=== PATIENT | male | born 1990 | race African-American/Black ===

== ENCOUNTER 2017-10-13 17:12 | Inpatient (IN) | payer MEDICAID ==
[~2017-10-13] VITALS: Ht 172.7 cm; Wt 88.6 kg
[~2017-10-13 17:12] MED LIST: DEXAMETHASONE SOD PHOS 4 MG/ML VIAL IV ONE; KETOROLAC TROMETHAMINE 30 MG/ML (IVP) VIAL IV PUSH ONE; LACTATED RINGER'S 1000 ML INJ 1,000 ML IV ONE; LIDOCAINE HCL 1% PF 5 ML SYRINGE OTHER ONE; ONDANSETRON HCL 4 MG/2 ML VIAL IV PUSH ONE; PROPOFOL 200 MG/20 ML AMP IV ONE
[2017-10-13 17:13] VITALS: BP 142/92; PULSE 73; RESP 12; TEMP 98; O2SAT 99
[2017-10-13] MEDS ORDERED: PIPERACIL-TAZO 3.375 GM PREMIX 50 ML IV ONE (17:30)
[2017-10-13] MEDS ORDERED: VANCOMYCIN INJ 1,000 MG in SODIUM CHLOR 0.9% 250 ML INJ 250 ML IV ONE (17:30)
[2017-10-13] MEDS ORDERED: TETANUS/DIPHTHERIA TOXOID ADULT 0.5 ML VIAL IM ONE (17:30)
--- NOTE | 2017-10-13 17:33 | PD ---
HPI Chief Complaint: Injury Time Seen by Provider: 17:27 Travel History International Travel<30 days: No Contact w/Intl Traveler<30days: No Traveled to known affect area: No History of Present Illness HPI [id number] male presents for evaluation of right index finger pain. He reports that 1 week ago he had his finger in the trigger of a caulk gun when the trigger somehow collapsed, crushing his right index finger. Since then he has had increasing pain and swelling in that right index finger now the pain is spreading up to the dorsum of the right wrist. Pain is throbbing, constant, worse with any sort of movement. He Reports that yesterday there was some oozing of serosanguineous fluid on the dorsum of the right index finger as well. It does not recall sustaining any wounds on the skin when his finger was crushed. His last tetanus vaccination is unknown. He has no other complaints. [facility] Social History Alcohol Use: Yes Tobacco Use: No Allergies-Medications (Allergen,Severity, Reaction): Coded Allergies: No Known Allergies (Unverified , 10/13/17) Review of Systems Except as stated in HPI: all other systems reviewed are Neg Physical Exam Narrative GENERAL: Well-developed well-nourished male who appears uncomfortable. SKIN: Warm and dry. Small area of skin excoriation on the dorsum of the right index finger with some dried blood. HEAD: Atraumatic. Normocephalic. EYES: Pupils equal and round. No scleral icterus. No injection or drainage. ENT: No nasal bleeding or discharge. Mucous membranes pink and moist. NECK: Trachea midline. No JVD. CARDIOVASCULAR: Regular rate and rhythm. No murmur appreciated. RESPIRATORY: No accessory muscle use. Clear to auscultation. Breath sounds equal bilaterally. MUSCULOSKELETAL: The right index finger is diffusely swollen. The patient is holding and passive flexion. He has significant pain with extension. He has no tenderness to palpation along the flexor tendon sheath of the right index finger or hand. NEUROLOGICAL: Awake and alert. No obvious cranial nerve deficits. Motor grossly within normal limits. Normal speech. Data Data Last Documented VS Vital Signs Date Time Temp Pulse Resp B/P (MAP) Pulse Ox O2 Delivery O2 Flow Rate FiO2 10/13/17 17:13 98.0 73 12 142/92 (109) 99 Orders Orders Finger (Mtz4qia) (2/3/18 ) Iv Access Insert/Monitor (10/13/17 17:27) Complete Blood Count With Diff (10/13/17 17:27) Basic Metabolic Panel (Bmp) (10/13/17 17:27) Act Partial Throm Time (Ptt) (10/13/17 17:27) Prothrombin Time / Inr (Pt) (10/13/17 17:27) Vancomycin Inj (Vancomycin Inj) (10/13/17 17:30) Piperacil-Tazo 3.375 Gm Premix (Zosyn 3. (10/13/17 17:30) Tetanus/Diphtheria Tox Adult (Tetanus/Di (10/13/17 17:30) Wound Culture And Gram Stain (10/13/17 17:37) Diet Npo (10/13/17 Dinner) Consult Hand Surgery (10/13/17 ) Mri Hand W/O Contrast (10/13/17 ) (Hub Use Only)Inp Phy Cons/Ref (10/13/17 ) Consent (10/13/17 18:04) Morphine Inj (Morphine Inj) (10/13/17 18:15) Admit Order (Ed Use Only) (10/13/17 18:17) Labs Laboratory Tests Test 10/13/17 17:40 White Blood Count 10.5 TH/MM3 Red Blood Count 4.26 MIL/MM3 Hemoglobin 14.0 GM/DL Hematocrit 40.5 % Mean Corpuscular Volume 95.2 FL Mean Corpuscular Hemoglobin 33.0 PG Mean Corpuscular Hemoglobin Concent 34.6 % Red Cell Distribution Width 13.2 % Platelet Count 258 TH/MM3 Mean Platelet Volume 8.2 FL Neutrophils (%) (Auto) 69.0 % Lymphocytes (%) (Auto) 23.0 % Monocytes (%) (Auto) 6.7 % Eosinophils (%) (Auto) 0.8 % Basophils (%) (Auto) 0.5 % Neutrophils # (Auto) 7.2 TH/MM3 Lymphocytes # (Auto) 2.4 TH/MM3 Monocytes # (Auto) 0.7 TH/MM3 Eosinophils # (Auto) 0.1 TH/MM3 Basophils # (Auto) 0.1 TH/MM3 CBC Comment DIFF FINAL Differential Comment Prothrombin Time 10.0 SEC Prothromb Time International Ratio 1.0 RATIO Activated Partial Thromboplast Time 27.1 SEC Blood Urea Nitrogen 16 MG/DL Creatinine 1.19 MG/DL Random Glucose 98 MG/DL Calcium Level 9.3 MG/DL Sodium Level 139 MEQ/L Potassium Level 3.5 MEQ/L Chloride Level 104 MEQ/L Carbon Dioxide Level 28.2 MEQ/L Anion Gap 7 MEQ/L Estimat Glomerular Filtration Rate 73 ML/MIN MDM Medical Decision Making Medical Screen Exam Complete: Yes Emergency Medical Condition: Yes Medical Record Reviewed: Yes Differential Diagnosis Finger abscess, tenosynovitis osteomyelitis, cellulitis Narrative Course Plan is for lab work, finger x-ray, tetanus vaccination, broad-spectrum antibiotics. Hand surgery will be consulted. Some serous drainage was expressed and the wound culture was performed. Discussed with Dr. Cabrera who would like the patient admitted to medicine, she has ordered an MRI and is considering taking him to the OR. Diagnosis Primary Impression: Infection of right hand Additional Impression: Cellulitis of right hand Admitting Information Admitting Physician Requests: Admit Toro Chamberlain Oct 13, 2017 17:33
[2017-10-13 17:54] LABS: AUTOMATED NEUTROPHIL # 7.2 TH/MM3 (1.8-7.7); BASOPHIL # 0.1 TH/MM3 (0-0.2); BASOPHIL % 0.5 % (0.0-2.0); EOSINOPHIL # 0.1 TH/MM3 (0-0.4); EOSINOPHIL % 0.8 % (0.0-4.0); HEMATOCRIT 40.5 % (39.0-51.0); LYMPHOCYTE # 2.4 TH/MM3 (1.0-4.8); MEAN CELL VOLUME 95.2 FL (80.0-100.0); MEAN CORPUSCULAR HGB CONC 34.6 % (32.0-36.0); MEAN PLATELET VOLUME 8.2 FL (7.0-11.0); MONO % 6.7 % (0.0-8.0); MONOCYTE # 0.7 TH/MM3 (0-0.9); PLATELET COUNT 258 TH/MM3 (150-450); RED BLOOD COUNT 4.26 MIL/MM3 (4.50-5.90); RED CELL DISTRIBUTION WIDTH 13.2 % (11.6-17.2); WHITE BLOOD COUNT 10.5 TH/MM3 (4.0-11.0)
--- NOTE | 2017-10-13 18:12 | RADRPT ---
EXAM DATE/TIME: 10/13/2017 17:41 [facility] COMPARISON: No previous studies available for comparison. INDICATIONS : Patient complains of pain and swelling to the 2nd digit, right hand. Patient states the had a door cr ush their finger at work. Abrasion to 2nd DIPJ. MEDICAL HISTORY : None. SURGICAL HISTORY : None. ENCOUNTER: Initial ACUITY: 1 day PAIN SCORE: 6/10 LOCATION: Right 2nd DIPJ FINDINGS: No definite fractures, or dislocations are identified. No definite lytic or sclerotic lesion is seen . Soft tissue swelling is identified involving the second digit with very radiopaque densities may be radiopaque foreign bodies in the soft tissues or possibly on the skin. CONCLUSION: Soft tissue swelling and no definite fracture for technique, radiopaque densities as above. Gopi Avila MD on October 13, 2017 at 18:09 Board Certified Radiologist. This report was verified electronically.
[2017-10-13] MEDS ORDERED: MORPHINE SULFATE 2 MG/ML INJ IV PUSH ONE (18:15)
--- NOTE | 2017-10-13 18:17 | HHI.HP ---
[facility] Primary [facility] Physician No Primary Care Physician Admission Diagnosis right second finger infection Diagnoses: (1) Infection of right hand Diagnosis: Principal Chief Complaint: pain to the right hand. Travel History International Travel<30 Days: No Contact w/Intl Traveler <30 Da: No Traveled to Known Affected Are: No History of Present Illness patient is a 27 y/o male with no significant past medical history presents for evaluation of right index finger pain. He reports that 1 week ago he had his finger in the trigger of a caulk gun when the trigger somehow collapsed, crushing his right index finger. Since then he has had increasing pain and swelling in that right index finger now the pain is spreading up to the dorsum of the right wrist. he says that the pain is to the extent that he can not bend his finger. he denies any fever or chills. Review of Systems Constitutional: DENIES: Fever, Weight loss, Chills, Night Sweats Eyes: DENIES: Blurred vision, Diplopia, Vision loss, Double Vision Ears, nose, mouth, throat: DENIES: Tinnitus, Vertigo, Throat pain, Epistaxis Respiratory: DENIES: Apneas, Cough, Snoring, Wheezing, Hemoptysis, Sputum production, Shortness of breath Cardiovascular: DENIES: Chest pain, Palpitations, Syncope, Dyspnea on Exertion , PND, Lower Extremity Edema, Orthopnea, Claudication Gastrointestinal: DENIES: Abdominal pain, Black stools, Bloody stools, Constipation, Diarrhea, Nausea, Vomiting, Difficulty Swallowing, Anorexia Genitourinary: DENIES: Urinary frequency, Urgency, Hematuria, Dysuria Musculoskeletal: COMPLAINS OF: Joint pain (right hand.), DENIES: Muscle aches, Stiffness, Joint Swelling Integumentary: DENIES: Rash Neurologic: DENIES: Abnormal gait, Headache, Localized weakness, Paresthesias, Seizures, Speech Problems, Tremor, Poor Balance Psychiatric: DENIES: Anxiety, Confusion, Mood changes, Depression, Hallucinations, Agitation, Suicidal Ideation, Homicidal Ideation, Delusions Past Family Social History Past Medical History none. Past Surgical History hand surgery. Reported Medications none. Allergies: Coded Allergies: No Known Allergies (Unverified , 10/13/17) Active Ordered Medications Inpatient Medications Morphine Sulfate (Morphine Inj) 4 mg ONCE ONCE IV PUSH ; Start 10/13/17 at 18:15 ; Stop 10/13/17 at 18:16 Piperacillin Sod/ Tazobactam Sod 50 ml @ 100 mls/hr ONCE ONCE IV ; Start at 17:30; Stop 10/13/17 at 17:59; Status DC Tetanus/ Diphtheria Toxoids (Tetanus/ Diphtheria Tox Adult) 0.5 ml ONCE ONCE IM Last administered on 10/13/17at 18:01; Start 10/13/17 at 17:30; Stop 10/13/17 at 17:31; Status DC Vancomycin HCl 1000 mg/Sodium Chloride 250 ml @ 250 mls/hr ONCE ONCE IV Last administered on 10/13/17at 18:02; Start 10/13/17 at 17:30; Stop 10/13/17 at 18:29 Family History not relevant to this admission. Social History smokes and drinks occasionally. Physical Exam Vital Signs Vital Signs Date Time Temp Pulse Resp B/P (MAP) Pulse Ox O2 Delivery O2 Flow Rate FiO2 10/13/17 17:13 98.0 73 12 142/92 (109) 99 Physical Exam GENERAL: This is a well-nourished, well-developed patient, in no apparent distress. SKIN: No rashes, ecchymoses or lesions. Cool and dry. HEAD: Atraumatic. Normocephalic. No temporal or scalp tenderness. EYES: Pupils equal round and reactive. Extraocular motions intact. No scleral icterus. No injection or drainage. ENT: Nose without bleeding, purulent drainage or septal hematoma. Throat without erythema, tonsillar hypertrophy or exudate. Uvula midline. Airway patent. NECK: Trachea midline. No JVD or lymphadenopathy. Supple, nontender, no meningeal signs. CARDIOVASCULAR: Regular rate and rhythm without murmurs, gallops, or rubs. RESPIRATORY: Clear to auscultation. Breath sounds equal bilaterally. No wheezes , rales, or rhonchi. GASTROINTESTINAL: Abdomen soft, non-tender, nondistended. No hepato-splenomegaly , or palpable masses. No guarding. MUSCULOSKELETAL:significant swelling, redness and tenderness of the right second finger. NEUROLOGICAL: Awake and alert. Cranial nerves II through XII intact. Motor and sensory grossly within normal limits. Five out of 5 muscle strength in all muscle groups. Normal speech. Laboratory Laboratory Tests Test 10/13/17 17:40 White Blood Count 10.5 Red Blood Count 4.26 Hemoglobin 14.0 Hematocrit 40.5 Mean Corpuscular Volume 95.2 Mean Corpuscular Hemoglobin 33.0 Mean Corpuscular Hemoglobin Concent 34.6 Red Cell Distribution Width 13.2 Platelet Count 258 Mean Platelet Volume 8.2 Neutrophils (%) (Auto) 69.0 Lymphocytes (%) (Auto) 23.0 Monocytes (%) (Auto) 6.7 Eosinophils (%) (Auto) 0.8 Basophils (%) (Auto) 0.5 Neutrophils # (Auto) 7.2 Lymphocytes # (Auto) 2.4 Monocytes # (Auto) 0.7 Eosinophils # (Auto) 0.1 Basophils # (Auto) 0.1 CBC Comment DIFF FINAL Differential Comment Prothrombin Time 10.0 Prothromb Time International Ratio 1.0 Activated Partial Thromboplast Time 27.1 Date/Time Source Procedure Growth Status 10/13/17 17:40 Wound Finger Gram Stain Pending Received 10/13/17 17:40 Wound Finger Wound Culture Pending Received Result Diagram: 10/13/17 3901 Caprini VTE Risk Assessment Caprini VTE Risk Assessment: No/Low Risk (score <= 1) Caprini Risk Assessment Model Point Value = 1 Point Value = 2 Point Value = 3 Point Value = 5 Age 41-60 Minor surgery BMI > 25 kg/m2 Swollen legs Varicose veins or History of unexplained or recurrent spontaneous Oral contraceptives or hormone replacement Sepsis (< 1 month) Serious lung disease, including pneumonia (< 1 month) Abnormal pulmonary function Acute myocardial infarction Congestive heart failure (< 1 month) History of inflammatory bowel disease Medical patient at bed rest Age 61-74 Arthroscopic surgery Major open surgery (> 45 min) Laparoscopic surgery (> 45 min) Malignancy Confined to bed (> 72 hours) Immobilizing plaster cast Central venous access Age >= 75 History of VTE Family history of VTE Factor V Leiden Prothrombin [id number] Lupus anticoagulant Anticardiolipin antibodies Elevated serum homocysteine Heparin-induced thrombocytopenia Other congenital or acquired thrombophilia Stroke (< 1 month) Elective arthroplasty Hip, pelvis, or leg fracture Acute spinal cord injury (< 1 month) Prophylaxis Regimen Total Risk Factor Score Risk Level Prophylaxis Regimen 0-1 Low Early ambulation 2 Moderate Order ONE of the following: *Sequential Compression Device (SCD) *Heparin 5000 units SQ BID 3-4 Higher Order ONE of the following medications: *Heparin 5000 units SQ TID *Enoxaparin/Lovenox 40 mg SQ daily (WT < 150 kg, CrCl > 30 mL/min) *Enoxaparin/Lovenox 30 mg SQ daily (WT < 150 kg, CrCl > 10-29 mL/min) *Enoxaparin/Lovenox 30 mg SQ BID (WT < 150 kg, CrCl > 30 mL/min) AND/OR *Sequential Compression Device (SCD) 5 or more Highest Order ONE of the following medications: *Heparin 5000 units SQ TID (Preferred with Epidurals) *Enoxaparin/Lovenox 40 mg SQ daily (WT < 150 kg, CrCl > 30 mL/min) *Enoxaparin/Lovenox 30 mg SQ daily (WT < 150 kg, CrCl > 10-29 mL/min) *Enoxaparin/Lovenox 30 mg SQ BID (WT < 150 kg, CrCl > 30 mL/min) AND *Sequential Compression Device (SCD) Assessment and Plan Assessment and Plan A/P - infection of the right second finger. continue with broad-spectrum IV antibiotics and pain control- MRI of the hand pending. hand surgery consulted and plan for possible surgery tonight. will follow the cultures and adjust the antibiotic regimen as needed. Discussed Condition With ER and the patient. Physician Certification 2 Midnight Certification Type: Admission for Inpatient Services Order for Inpatient Services The services are ordered in accordance with Medicare regulations or non- Medicare payer requirements, as applicable. In the case of services not specified as inpatient-only, they are appropriately provided as inpatient services in accordance with the 2-midnight benchmark. Estimated LOS (days): 2 days is the estimated time the patient will need to remain in the hospital, assuming treatment plan goals are met and no additional complications. Post-Hospital Plan: Home Clotilde Bentley MD Oct 13, 2017 18:17
[2017-10-13 18:18] LABS: BICARBONATE 28.2 MEQ/L (21.0-32.0); CALCIUM 9.3 MG/DL (8.5-10.1); CREATININE 1.19 MG/DL (0.60-1.30)
[2017-10-13] MEDS ORDERED: SODIUM CHLOR 0.9% 1000 ML INJ 1,000 ML IV ONE (18:30)
[2017-10-13] MEDS ORDERED: ACETAMINOPHEN 325 MG TAB PO PRN (18:30)
[2017-10-13] MEDS ORDERED: Vancomycin Consult Pharmacy 1 EA OTHER SCH (18:30)
[2017-10-13] MEDS ORDERED: ONDANSETRON HCL 4 MG/2 ML VIAL IV PUSH PRN (18:30)
[2017-10-13] MEDS ORDERED: MORPHINE SULFATE 2 MG/ML INJ IV PUSH PRN (18:30)
--- NOTE | 2017-10-13 18:37 | PD ---
Data Data Last Documented VS Vital Signs Date Time Temp Pulse Resp B/P (MAP) Pulse Ox O2 Delivery O2 Flow Rate FiO2 10/13/17 18:24 100 10/13/17 17:13 98.0 73 12 142/92 (109) 99 Orders Orders Finger (Equ7rkf) (10/13/17 ) Iv Access Insert/Monitor (10/13/17 17:27) Complete Blood Count With Diff (10/13/17 17:27) Basic Metabolic Panel (Bmp) (10/13/17 17:27) Act Partial Throm Time (Ptt) (10/13/17 17:27) Prothrombin Time / Inr (Pt) (10/13/17 17:27) Vancomycin Inj (Vancomycin Inj) (10/13/17 17:30) Piperacil-Tazo 3.375 Gm Premix (Zosyn 3. (10/13/17 17:30) Tetanus/Diphtheria Tox Adult (Tetanus/Di (10/13/17 17:30) Wound Culture And Gram Stain (10/13/17 17:37) Diet Npo (10/13/17 Dinner) Consult Hand Surgery (10/13/17 ) Mri Hand W/O Contrast (10/13/17 ) (Hub Use Only)Inp Phy Cons/Ref (10/13/17 ) Consent (10/13/17 18:04) Morphine Inj (Morphine Inj) (10/13/17 18:15) Admit Order (Ed Use Only) (10/13/17 18:17) Morphine Inj (Morphine Inj) (10/13/17 18:30) Piperacil-Tazo 3.375 Gm Premix (Zosyn 3. (10/13/17 23:00) Vancomycin Consult Pharmacy (Vancomycin (10/13/17 18:30) Ondansetron Inj (Zofran Inj) (10/13/17 18:30) Acetaminophen (Tylenol) (10/13/17 18:30) Sodium Chlor 0.9% 1000 Ml Inj (Ns 1000 M (10/13/17 18:30) Vital Signs (Adult) HARSHAD.Q4H (10/13/17 18:17) Admit To Inpatient (10/13/17 ) Inpatient Certification (10/13/17 ) Labs Laboratory Tests Test 10/13/17 17:40 White Blood Count 10.5 TH/MM3 Red Blood Count 4.26 MIL/MM3 Hemoglobin 14.0 GM/DL Hematocrit 40.5 % Mean Corpuscular Volume 95.2 FL Mean Corpuscular Hemoglobin 33.0 PG Mean Corpuscular Hemoglobin Concent 34.6 % Red Cell Distribution Width 13.2 % Platelet Count 258 TH/MM3 Mean Platelet Volume 8.2 FL Neutrophils (%) (Auto) 69.0 % Lymphocytes (%) (Auto) 23.0 % Monocytes (%) (Auto) 6.7 % Eosinophils (%) (Auto) 0.8 % Basophils (%) (Auto) 0.5 % Neutrophils # (Auto) 7.2 TH/MM3 Lymphocytes # (Auto) 2.4 TH/MM3 Monocytes # (Auto) 0.7 TH/MM3 Eosinophils # (Auto) 0.1 TH/MM3 Basophils # (Auto) 0.1 TH/MM3 CBC Comment DIFF FINAL Differential Comment Prothrombin Time 10.0 SEC Prothromb Time International Ratio 1.0 RATIO Activated Partial Thromboplast Time 27.1 SEC Blood Urea Nitrogen 16 MG/DL Creatinine 1.19 MG/DL Random Glucose 98 MG/DL Calcium Level 9.3 MG/DL Sodium Level 139 MEQ/L Potassium Level 3.5 MEQ/L Chloride Level 104 MEQ/L Carbon Dioxide Level 28.2 MEQ/L Anion Gap 7 MEQ/L Estimat Glomerular Filtration Rate 73 ML/MIN [facility] Supervised Visit with OMKAR: Yes Narrative Course The history, exam, and medical decision-making in the associated mid-level provider note were completed with my assistance. I reviewed and agree with the findings presented. I attest that I had a [id number] encounter with the patient on the same day, and personally performed and documented my assessment and findings in the medical record. *My assessment and Findings: There is a 34-year-old man presents to the ED with painful probably infected right index finger. Apparently a call in the caulk gun several days ago. Minimal injuries at that time, no worsening pain redness swelling. Also some drainage from the dorsum of the finger. Likely has an infection. The drainage appears to be very superficial. I do not think there is a deeper drainable fluid collection. He has pain and redness tracking up the dorsum of the hand. Will give IV antibiotics. Spoke with hand surgery who requested MRI of the hand. Patient will be admitted to medicine. Diagnosis Primary Impression: Infection of right hand Additional Impression: Cellulitis of right hand Nic Mojica MD Oct 13, 2017 18:37
--- NOTE | 2017-10-13 19:15 | RADRPT ---
EXAM DATE/TIME: 10/13/2017 18:29 [facility] COMPARISON: No previous studies available for comparison. INDICATIONS : Abscess. MEDICAL HISTORY : None. SURGICAL HISTORY : None. ENCOUNTER: Initial ACUITY: 4-6 days PAIN SCORE: 7/10 LOCATION: Right second digit TECHNIQUE: Multiplanar, multisequence MRI examination was performed without contrast. FINDINGS: There is extensive swelling involving the second digit in subcutaneous tissues diffusely. The ra diopaque densities identified on the patient's plain radiographs are difficult to visualize. No defin ite abscess is identified. There is slight fluid surrounding the flexor tendons at the level of the d istal proximal phalanx volume averaging of coronal projections with the marrow and the marrow itself appears intact without definite signs of osteomyelitis. CONCLUSION: Extensive soft tissue swelling and no definite abscess. Gopi Avila MD on October 13, 2017 at 19:09 Board Certified Radiologist. This report was verified electronically.
[2017-10-13] MEDS ORDERED: BUPIVACAINE HCL PF 0.5% 30 ML VIAL ONE (20:37)
[2017-10-13] MEDS ORDERED: GENTAMICIN SULFATE 80 MG/2 ML VIAL ONE (20:37)
[2017-10-13] MEDS ORDERED: KETAMINE HCL 500 MG/5 ML VIAL ONE (20:38)
[2017-10-13] MEDS ORDERED: ACETAMINOPHEN 1000 MG/100 ML 100 ML IV ONE (20:38)
[2017-10-13] MEDS ORDERED: MIDAZOLAM HCL 2 MG/2 ML VIAL ONE (20:38)
[2017-10-13] MEDS ORDERED: LIDOCAINE HCL 2% 50 ML VIAL ONE (20:41)
[2017-10-13] MEDS ORDERED: DO NOT ADM ANY ANTICOAGULANT DRUGS PRN (21:30)
--- NOTE | 2017-10-13 22:04 | PD.ORT.PN ---
Subjective Subjective Remarks Patient comfortable in PACU Objective Vitals Vital Signs Date Time Temp Pulse Resp B/P (MAP) Pulse Ox O2 Delivery O2 Flow Rate FiO2 10/13/17 21:39 99.0 74 19 102/55 (71) 100 Nasal Cannula 6 10/13/17 18:24 100 10/13/17 17:13 98.0 73 12 142/92 (109) 99 I/O 10/12/17 10/12/17 10/12/17 10/13/17 10/13/17 10/13/17 07:00 15:00 23:00 07:00 15:00 23:00 Intake Total 250 ml Balance 250 ml Intake IV Total 250 ml Result Diagram: 10/13/17 1740 10/13/17 1740 Other Results Laboratory Tests Test 10/13/17 17:40 Prothromb Time International Ratio 1.0 RATIO Prothrombin Time 10.0 SEC (9.8-11.6) Imaging Last 24 hours Impressions Hand MRI 10/13/17 0000 Signed Impressions: Service Date/Time: Friday, October 13, 2017 18:29 - CONCLUSION: Extensive soft tissue swelling and no definite abscess. Gopi Avila MD Finger X-Ray 10/13/17 0000 Signed Impressions: Service Date/Time: Friday, October 13, 2017 17:41 - CONCLUSION: Soft tissue swelling and no definite fracture for technique, radiopaque densities as above. Gopi Avila MD Objective Remarks dressing in place, <2 sec capillary refill to finger Assessment & Plan Assessment and Plan 27yM POD0 s/p I&D abscess right index finger extensor tendon sheath -Packing in place, follow cultures, Ab per primary team -Recommend off work until followup 1 week, okay for gentle ROM finger Pauline Cabrera MD Oct 13, 2017 22:03
[2017-10-13] MEDS ORDERED: *morphine SULFATE 4 MG/ML PERIprocedure ONLY ONE (22:10)
--- NOTE | 2017-10-13 22:17 | MB ---
cc: [facility] DATE OF CONSULTATION 10/13/17 REASON FOR CONSULTATION Pain right index finger. HISTORY OF PRESENT ILLNESS Rolly Flores is a 27-year-old right-hand dominant male who works in [employer]. He states that approximately one week ago he had a caulk gun pinch his right index finger. Initially, he did not have significant pain, but over the past several days he has had worsening pain and swelling and presented to the emergency room. He does not remember a cut but has had no prior injuries to the right hand. He did have some drainage yesterday. He presented to the emergency room for evaluation. He denies any paresthesias. PAST MEDICAL HISTORY Denies. 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 Denies any illicit drug use. ALLERGIES NO KNOWN DRUG ALLERGIES. PHYSICAL EXAMINATION The patient is alert and oriented. Exam of the right index finger showed some drainage over the radial dorsal aspect of the right index finger. Pain with range of motion of the right index finger. No tenderness along the flexor tendon sheath. Significant swelling dorsally again over the middle phalanx. Sensation intact in the radial & ulnar side. Less than 2-second capillary refill. White count 10.5. X-rays showed no evidence of fracture, possible metallic foreign body. MRI concerning for possible abscess. Treatment options discussed with the patient. At this time, I recommend incision and drainage at the earliest available time. He elected to proceed. MD BESS Moran/ /10:01 PM /10:11 PM MARCELLA
[2017-10-13 22:40] VITALS: BP 122/66; PULSE 63; RESP 20; TEMP 97.3; O2SAT 99
[2017-10-13] MEDS: PIPERACIL-TAZO 3.375 GM PREMIX 50 ML IV SCH (23:13)
[2017-10-13] MEDS: oxyCODONE/ACETAMINOPHEN 5 MG/325 MG TAB PO PRN (23:14)
[2017-10-14 00:19] VITALS: BP 103/51; PULSE 65; RESP 20; TEMP 97.9; O2SAT 98
[2017-10-14] MEDS ORDERED: VANCOMYCIN 1,000 MG/NS 250 ML IV ONE ×2 (01:00)
[2017-10-14 04:33] VITALS: BP 102/54; PULSE 50; RESP 20; TEMP 97.2; O2SAT 99
[2017-10-14] MEDS: PIPERACIL-TAZO 3.375 GM PREMIX 50 ML IV SCH ×4 (06:05→23:18)
[2017-10-14] MEDS: oxyCODONE/ACETAMINOPHEN 5 MG/325 MG TAB PO PRN ×5 (06:06→23:17)
[2017-10-14 08:01] VITALS: BP 102/58; PULSE 50; RESP 20; TEMP 97.3; O2SAT 97
--- NOTE | 2017-10-14 10:25 | MP ---
cc: PAULINE CABRERA DATE OF SURGERY: 10/13/2017 PREOPERATIVE DIAGNOSIS: Abscess right index finger. POSTOPERATIVE DIAGNOSIS: Abscess right index finger. OPERATION: Incision and drainage, abscess, right index finger including debridement of extensor tendon sheath, right index finger. SURGEON Dr. Pauline Cabrera ANESTHESIA General and local. TOURNIQUET TIME 2 minutes at 200 mmHg. SPECIMEN Cultures INDICATIONS FOR PROCEDURE Rolly Flores is a 27-year-old right-hand dominant male who states that he accidentally had a caulk gun pinch his right index finger approximately a week ago. He reported worsening pain and swelling and presented to the emergency room today for evaluation. I was called by the emergency room. He has elected to proceed with surgical intervention, after MRI showed abscess. The risks were explained to the patient, limited to wound complications, infection, sepsis, stiffness over the finger, need for additional surgeries and he elected to proceed. DESCRIPTION OF PROCEDURE The patient was identified in the preop holding area. The correct extremity was marked. The patient was taken to the operating room. Anesthesia induced. The right upper extremity was prepped and draped in normal sterile fashion. A longitudinal incision was made over the middle phalanx of the dorsum of the right index finger. Upon making the incision there was significant purulence which was sent for culture. This involved the extensor tendon sheath which was debrided. This did not appear to involve the PIP joint. Tourniquet was released. The wound was irrigated with antibiotic saline. The wound was closed loosely with chromic and packing was placed. He was awoken from anesthesia without complications. He will be admitted for IV antibiotics. MD BESS Moran/APPLE /9:59 PM /10:08 AM [facility]
--- NOTE | 2017-10-14 11:02 | HHI.PR ---
Subjective Remarks Patient says he is feeling well. Reports pain controlled. Denies any chest pain or shortness breath. Denies any nausea or vomiting. Abdominal yesterday. Denies constipation. Objective Vital Signs Date Time Temp Pulse Resp B/P (MAP) Pulse Ox O2 Delivery O2 Flow Rate FiO2 10/14/17 08:01 97.3 50 20 102/58 (73) 97 10/14/17 08:00 Room Air 10/14/17 04:33 97.2 50 20 102/54 (70) 99 10/14/17 04:00 Room Air 10/14/17 00:19 97.9 65 20 103/51 (68) 98 10/14/17 00:00 Room Air 10/13/17 23:26 Room Air 10/13/17 22:40 97.3 63 20 122/66 (84) 99 10/13/17 22:15 98.8 58 23 127/73 (91) 96 Room Air 10/13/17 22:00 58 23 127/76 (93) 97 Room Air 10/13/17 21:45 68 23 126/60 (82) 100 Nasal Cannula 4 10/13/17 21:39 99.0 74 19 102/55 (71) 100 Nasal Cannula 6 10/13/17 18:24 100 10/13/17 17:13 98.0 73 12 142/92 (109) 99 I/O 10/13/17 10/13/17 10/13/17 10/14/17 10/14/17 10/14/17 07:00 15:00 23:00 07:00 15:00 23:00 Intake Total 250 ml 1350 ml Output Total 300 ml 5 ml Balance -50 ml 1345 ml Intake IV Total 250 ml 350 ml Other 1000 ml Output Urine Total 300 ml Estimated Blood Loss 5 ml # Voids 2 Result Diagram: 10/13/17 1740 10/13/17 1740 Objective Remarks GENERAL: Patient sitting up in bed. Appears comfortable. SKIN: Warm and dry. HEAD: Normocephalic. EYES: No scleral icterus. No injection or drainage. NECK: Supple, trachea midline. No JVD or lymphadenopathy. CARDIOVASCULAR: Regular rate and rhythm without murmurs, gallops, or rubs. RESPIRATORY: Breath sounds equal bilaterally. No accessory muscle use. GASTROINTESTINAL: Abdomen soft, non-tender, nondistended. MUSCULOSKELETAL: No cyanosis, or edema. Right second finger dressed with dressing clean dry and intact. Peripheral perfusion of the other fingers intact. BACK: Nontender without obvious deformity. No CVA tenderness. A/P Assessment and Plan //infection of the right second finger. =MRI with soft tissue swelling. =Status post surgery by or so. =continue with broad-spectrum IV antibiotics and pain control- = Surgical culture with Gram stain gram-positive cocci. Follow-up culture results and sensitivities. Discharge Planning He is on broad-spectrum antibiotics. Pending results of cultures sensitivities , ortho clearance. Jovan Pang MD Oct 14, 2017 11:02
[2017-10-14 12:01] VITALS: BP 129/66; PULSE 64; RESP 20; TEMP 97; O2SAT 100
[2017-10-14] MEDS: VANCOMYCIN INJ 1,250 MG in SODIUM CHLOR 0.9% 250 ML INJ 250 ML IV SCH (14:19)
[2017-10-14 16:01] VITALS: BP 124/64; PULSE 66; RESP 19; TEMP 97.4; O2SAT 100
[2017-10-14 20:00] VITALS: BP 141/88; PULSE 67; RESP 14; TEMP 99.1; O2SAT 97
[2017-10-15 00:54] VITALS: BP 137/65; PULSE 66; RESP 17; TEMP 98.3; O2SAT 99
[2017-10-15] MEDS: VANCOMYCIN INJ 1,250 MG in SODIUM CHLOR 0.9% 250 ML INJ 250 ML IV SCH ×2 (02:40→13:39)
[2017-10-15] MEDS: oxyCODONE/ACETAMINOPHEN 5 MG/325 MG TAB PO PRN ×6 (02:41→23:04)
[2017-10-15 04:52] VITALS: BP 94/55; PULSE 50; RESP 17; TEMP 97.6; O2SAT 99
[2017-10-15] MEDS: PIPERACIL-TAZO 3.375 GM PREMIX 50 ML IV SCH (06:33)
[2017-10-15 08:01] VITALS: BP 113/75; PULSE 50; RESP 16; TEMP 97.4; O2SAT 99
[2017-10-15] MEDS ORDERED: PNEUMOCOCCAL POLYVALENT INJ 25 MCG/0.5 ML SYR IM ONE (10:00)
[2017-10-15 12:10] VITALS: BP 143/83; PULSE 75; RESP 17; TEMP 97.9; O2SAT 100
--- NOTE | 2017-10-15 14:00 | HHI.PR ---
Subjective Remarks Denies fevers and chills. Hand pain controlled. low bp overnight with an bp of 94/55. Objective Vitals Vital Signs Date Time Temp Pulse Resp B/P (MAP) Pulse Ox O2 Delivery O2 Flow Rate FiO2 10/15/17 12:10 97.9 75 17 143/83 (103) 100 10/15/17 08:01 97.4 50 16 113/75 (88) 99 10/15/17 04:52 97.6 50 17 94/55 (68) 99 10/15/17 04:00 Room Air 10/15/17 00:54 98.3 66 17 137/65 (89) 99 10/15/17 00:00 Room Air 10/14/17 20:00 99.1 67 14 141/88 (105) 97 10/14/17 20:00 Room Air 10/14/17 16:01 97.4 66 19 124/64 (84) 100 10/14/17 16:00 Room Air I/O 10/14/17 10/14/17 10/14/17 10/15/17 10/15/17 10/15/17 07:00 15:00 23:00 07:00 15:00 23:00 Intake Total 1350 ml 480 ml Output Total 5 ml Balance 1345 ml 480 ml Intake Oral 480 ml IV Total 350 ml Other 1000 ml Estimated Blood Loss 5 ml # Voids 2 6 3 # Bowel Movements 1 Result Diagram: 10/13/17 1740 10/13/17 1740 Imaging Last Impressions Hand MRI 10/13/17 0000 Signed Impressions: Service Date/Time: Friday, October 13, 2017 18:29 - CONCLUSION: Extensive soft tissue swelling and no definite abscess. Gopi Avila MD Finger X-Ray 10/13/17 0000 Signed Impressions: Service Date/Time: Friday, October 13, 2017 17:41 - CONCLUSION: Soft tissue swelling and no definite fracture for technique, radiopaque densities as above. Gopi Avila MD Objective Remarks AAOx3 Clear lungs BL S1S2 RRR Right second finger dressed with dressing clean dry and intact. Peripheral perfusion of the other fingers intact. abdomen soft, NT, ND no edema in lower extremities Procedures Incision and drainage, abscess, right index finger including debridement of extensor tendon sheath, right index finger. Medications and IVs Current Medications Medications (Trade) Dose Ordered Sig/Deyvi Route Start Time Stop Time Status Last Admin (Morphine Inj) 2 mg Q4H PRN IV PUSH 10/13/17 18:30 10/14/17 20:13 Pharmacy Profile Note 0 ml @ 0 mls/hr UNSCH OTHER 10/13/17 18:30 (Zofran Inj) 4 mg Q8HR PRN IV PUSH 10/13/17 18:30 (Tylenol) 650 mg Q4H PRN PO 10/13/17 18:30 (Percocet 5-325 Mg) 1 tab Q4H PRN PO 10/13/17 22:45 10/15/17 10:23 Miscellaneous Information SPECIFIC LAB TO BE DRAWN:VA... ONCE ONCE .XX 10/16/17 01:45 10/16/17 01:46 Vancomycin HCl 1250 mg/Sodium Chloride 262.5 ml @ 250 mls/hr Q12H IV 10/14/17 14:00 10/15/17 13:39 Urinary Catheter: No Vascular Central Line Catheter: No A/P Problem List: (1) Infection of right hand ICD Code: L08.9 - Local infection of the skin and subcutaneous tissue, unspecified Status: Acute Plan: MRI with soft tissue swelling. Status post incision and drainage. Started on IV vancomycin and IV Zosyn. Wound culture growing MRSA, DC IV zosyn ID consult for outpatient antibiotic therapy recommendation since infection seemed to be affecting tendon sheaths. Continue pain control with Percocet and morphine sulfate. Assessment and Plan DVT prophylaxis: SCDs. Discharge Planning Discharge pending and surgical clearance, ID consultation for outpatient antibiotic therapy recommendations. Nadir Camacho MD Oct 15, 2017 14:00
[2017-10-15 16:09] VITALS: BP 145/85; PULSE 60; RESP 17; TEMP 97.2; O2SAT 100
--- NOTE | 2017-10-15 16:30 | PD.ID.CON ---
History of Present Illness Service ID Consult Requested By Reason for Consult Evaluation and Mment of right index finger infection. Primary Care Physician No Primary Care Physician Diagnoses: History of Present Illness is a 27 y/o male with no significant past medical history presents for evaluation of right index finger pain. He reports that 1 week ago he had his finger in the trigger of a caulk gun when the trigger somehow collapsed, crushing his right index finger. Since then he has had increasing pain and swelling in that right index finger now the pain is spreading up to the dorsum of the right wrist. he says that the pain is to the extent that he can not bend his finger. he denies any fever or chills. saw patient and I&D of abscess performed. Intraop cultures with MRSA. Intra op note and d.w : no bone infection. Tenosynovitis. Review of Systems Constitutional: DENIES: Diaphoretic episodes, Fatigue, Fever, Weight gain, Weight loss, Chills, Dizziness, Change in appetite, Night Sweats Endocrine: DENIES: Heat/cold intolerance, Polydipsia, Polyuria, Polyphagia Eyes: DENIES: Blurred vision, Diplopia, Eye inflammation, Eye pain, Vision loss , Photosensitivity, Double Vision Ears, nose, mouth, throat: DENIES: Tinnitus, Hearing loss, Vertigo, Nasal discharge, Oral lesions, Throat pain, Hoarseness, Ear Pain, Running Nose, Epistaxis, Sinus Pain, Toothache, Odynophagia Respiratory: DENIES: Apneas, Cough, Snoring, Wheezing, Hemoptysis, Sputum production, Shortness of breath Cardiovascular: DENIES: Chest pain, Palpitations, Syncope, Dyspnea on Exertion , PND, Lower Extremity Edema, Orthopnea, Claudication Gastrointestinal: DENIES: Abdominal pain, Black stools, Bloody stools, Constipation, Diarrhea, Nausea, Vomiting, Difficulty Swallowing, Anorexia Musculoskeletal: COMPLAINS OF: Joint pain, DENIES: Muscle aches, Stiffness, Joint Swelling, Back pain, Neck pain Integumentary: DENIES: Abnormal pigmentation, Nail changes, Pruritus, Rash Hematologic/lymphatic: DENIES: Bruising, Lymphadenopathy Immunologic/allergic: DENIES: Eczema, Urticaria Neurologic: DENIES: Abnormal gait, Headache, Localized weakness, Paresthesias, Seizures, Speech Problems, Tremor, Poor Balance Psychiatric: DENIES: Anxiety, Confusion, Mood changes, Depression, Hallucinations, Agitation, Suicidal Ideation, Homicidal Ideation, Delusions Except as stated in HPI: all other systems reviewed are Neg Past Family Social History Allergies: Coded Allergies: No Known Allergies (Unverified , 10/13/17) Past Medical History None per patient. Past Surgical History None per patient. Reported Medications None per patient Active Ordered Medications Current Medications Medications (Trade) Dose Ordered Sig/Deyvi Route Start Time Stop Time Status Last Admin (Morphine Inj) 2 mg Q4H PRN IV PUSH 10/13/17 18:30 10/14/17 20:13 Pharmacy Profile Note 0 ml @ 0 mls/hr UNSCH OTHER 10/13/17 18:30 (Zofran Inj) 4 mg Q8HR PRN IV PUSH 10/13/17 18:30 (Tylenol) 650 mg Q4H PRN PO 10/13/17 18:30 (Percocet 5-325 Mg) 1 tab Q4H PRN PO 10/13/17 22:45 10/15/17 14:49 Miscellaneous Information SPECIFIC LAB TO BE DRAWN:VA... ONCE ONCE .XX 10/16/17 01:45 10/16/17 01:46 Vancomycin HCl 1250 mg/Sodium Chloride 262.5 ml @ 250 mls/hr Q12H IV 10/14/17 14:00 10/15/17 13:39 Family History reviewed and NC to current ID problems. Social History smokes and drinks occasionally. admits to [facility] '[facility]' Physical Exam Vital Signs Vital Signs Date Time Temp Pulse Resp B/P (MAP) Pulse Ox O2 Delivery O2 Flow Rate FiO2 10/15/17 16:09 97.2 60 17 145/85 (105) 100 10/15/17 12:10 97.9 75 17 143/83 (103) 100 10/15/17 08:01 97.4 50 16 113/75 (88) 99 10/15/17 07:00 Room Air 10/15/17 04:52 97.6 50 17 94/55 (68) 99 10/15/17 04:00 Room Air 10/15/17 00:54 98.3 66 17 137/65 (89) 99 10/15/17 00:00 Room Air 10/14/17 20:00 99.1 67 14 141/88 (105) 97 10/14/17 20:00 Room Air Physical Exam GENERAL: This is a well-nourished, well-developed patient, in no apparent distress. SKIN: No rashes, ecchymoses or lesions. Cool and dry. HEAD: Atraumatic. Normocephalic. No temporal or scalp tenderness. EYES: Pupils equal round and reactive. Extraocular motions intact. No scleral icterus. No injection or drainage. ENT: Nose without bleeding, purulent drainage or septal hematoma. Throat without erythema, tonsillar hypertrophy or exudate. Uvula midline. Airway patent. NECK: Trachea midline. Supple, nontender, no meningeal signs. CARDIOVASCULAR: HS audible. RESPIRATORY: Clear to auscultation. Breath sounds equal bilaterally. GASTROINTESTINAL: Abdomen soft, non-tender, nondistended. MUSCULOSKELETAL: UE: Right index finger with dressing in place and in sling. Lower Extremities without clubbing, cyanosis, or edema. No joint tenderness, effusion, or edema noted. No calf tenderness. Negative Homans sign bilaterally. NEUROLOGICAL: Awake and alert. Grossly non focal Psych cooperative IV line sites with no e.o infection Laboratory Intraop cultures with MRSA susceptibility pending. Date/Time Source Procedure Growth Status 10/13/17 21:10 Abscess Finger Fungal Smear - Final NO FUNGAL ELEMENTS SEEN. Resulted 10/13/17 21:10 Abscess Finger Fungal Culture Pending Resulted Result Diagram: 10/13/17 1740 10/13/17 1740 Imaging Last Impressions Hand MRI 10/13/17 0000 Signed Impressions: Service Date/Time: Friday, October 13, 2017 18:29 - CONCLUSION: Extensive soft tissue swelling and no definite abscess. Gopi Avila MD Finger X-Ray 10/13/17 0000 Signed Impressions: Service Date/Time: Friday, October 13, 2017 17:41 - CONCLUSION: Soft tissue swelling and no definite fracture for technique, radiopaque densities as above. Gopi Avila MD Assessment and Plan Assessment and Plan MRSA left index finger infection. Possible tenosynovitis, no joint involved per Hand surgery notes. h/o injury by a caulk gun. Recs: DC Vanco IV Start Zyvox oral. Mandatory Infectious Disease Referral through [facility] [employer] program. Zyvox oral scripts written and Form for insurance completed office also informed. Janice Hodges MD Oct 15, 2017 16:30
[2017-10-15 20:00] VITALS: BP 127/76; PULSE 56; RESP 18; TEMP 97.9; O2SAT 100
[2017-10-15 21:14] LABS: AUTOMATED NEUTROPHIL # 2.9 TH/MM3 (1.8-7.7); BASOPHIL % 0.6 % (0.0-2.0); EOSINOPHIL # 0.1 TH/MM3 (0-0.4); EOSINOPHIL % 1.3 % (0.0-4.0); HEMATOCRIT 40.5 % (39.0-51.0); HEMOGLOBIN 13.7 GM/DL (13.0-17.0); LYMPH % 49.5 % (9.0-44.0); LYMPHOCYTE # 3.4 TH/MM3 (1.0-4.8); MEAN CELL VOLUME 95.3 FL (80.0-100.0); MEAN CORPUSCULAR HEMOGLOBIN 32.4 PG (27.0-34.0); MEAN CORPUSCULAR HGB CONC 33.9 % (32.0-36.0); MEAN PLATELET VOLUME 8.7 FL (7.0-11.0); MONO % 5.6 % (0.0-8.0); MONOCYTE # 0.4 TH/MM3 (0-0.9); PLATELET COUNT 267 TH/MM3 (150-450); RED BLOOD COUNT 4.25 MIL/MM3 (4.50-5.90); RED CELL DISTRIBUTION WIDTH 13.1 % (11.6-17.2); WHITE BLOOD COUNT 6.9 TH/MM3 (4.0-11.0)
[2017-10-15 21:39] LABS: ALT (GPT) 69 U/L (12-78)
[2017-10-15 21:46] LABS: ALKALINE PHOSPHATASE 80 U/L (45-117); C-REACTIVE PROTEIN 0.76 MG/DL (0.00-0.30); TOTAL BILIRUBIN ADULT 0.2 MG/DL (0.2-1.0); TOTAL PROTEIN 6.9 GM/DL (6.4-8.2)
[2017-10-15 22:00] LABS: ALBUMIN 3.2 GM/DL (3.4-5.0); AST (GOT) 42 U/L (15-37); BICARBONATE 27.3 MEQ/L (21.0-32.0); BLOOD UREA NITROGEN 17 MG/DL (7-18); CALCIUM 9.1 MG/DL (8.5-10.1); CHLORIDE 105 MEQ/L (98-107); CREATININE 1.13 MG/DL (0.60-1.30); GLOMERULAR FILTRATION RATE 94 ML/MIN (>89); GLUCOSE,RANDOM 105 MG/DL (74-106); SODIUM (NA) 139 MEQ/L (136-145)
[2017-10-16] VITALS: BP 125/68; PULSE 101; RESP 18; TEMP 98.1; O2SAT 99
[2017-10-16] MEDS ORDERED: PHARMACY ORDERED LAB ONE (01:45)
[2017-10-16] MEDS: VANCOMYCIN INJ 1,250 MG in SODIUM CHLOR 0.9% 250 ML INJ 250 ML IV SCH (02:17)
[2017-10-16 03:02] LABS: CREATININE 0.99 MG/DL (0.60-1.30)
[2017-10-16] MEDS: oxyCODONE/ACETAMINOPHEN 5 MG/325 MG TAB PO PRN ×3 (03:03→15:05)
[2017-10-16 03:04] LABS: VANCOMYCIN TROUGH 7.2 MCG/ML (5.0-10.0)
[2017-10-16 04:00] VITALS: BP 128/62; PULSE 57; RESP 14; TEMP 97.7; O2SAT 97
[2017-10-16 08:00] VITALS: BP 120/57; PULSE 51; RESP 18; TEMP 97.5; O2SAT 99
[2017-10-16 12:04] VITALS: BP 126/59; PULSE 51; RESP 18; TEMP 98.5; O2SAT 99
[2017-10-16] MEDS ORDERED: ZYVO600T PO (13:12)
[2017-10-16] MEDS ORDERED: LINEZOLID 600 MG TAB PO SCH (13:17)
--- NOTE | 2017-10-16 13:17 | HHI.DCPOC ---
Discharge Care Plan Diagnosis: (1) Cellulitis of right hand (2) Infection of right hand (3) Tenosynovitis of finger (4) MRSA (methicillin resistant Staphylococcus aureus) infection Goals to Promote Your Health * To prevent worsening of your condition and complications * To maintain your health at the optimal level Directions to Meet Your Goals Take your medications as prescribed Follow your dietary instruction Follow activity as directed Keep your appointments as scheduled Take your immunizations and boosters as scheduled If your symptoms worsen call your PCP, if no PCP go to Urgent Care Center or Emergency Room Smoking is Dangerous to Your Health. Avoid second hand smoke Call the 24-hour hour crisis hotline for domestic abuse at Nadir Camacho MD Oct 16, 2017 13:17
--- NOTE | 2017-10-16 13:17 | HHI.PR ---
Subjective Remarks Denies fevers, chills Pain controlled. Objective Vitals Vital Signs Date Time Temp Pulse Resp B/P (MAP) Pulse Ox O2 Delivery O2 Flow Rate FiO2 10/16/17 12:04 98.5 51 18 126/59 (81) 99 10/16/17 09:13 Room Air 10/16/17 08:00 97.5 51 18 120/57 (78) 99 10/16/17 04:00 Room Air 10/16/17 04:00 97.7 57 14 128/62 (84) 97 10/16/17 00:00 98.1 101 18 125/68 (87) 99 10/16/17 00:00 Room Air 10/15/17 20:00 Room Air 10/15/17 20:00 97.9 56 18 127/76 (93) 100 10/15/17 16:09 97.2 60 17 145/85 (105) 100 I/O 10/15/17 10/15/17 10/15/17 10/16/17 10/16/17 10/16/17 07:00 15:00 23:00 07:00 15:00 23:00 Intake Total 300 ml 970 ml 262.5 ml Balance 300 ml 970 ml 262.5 ml Intake Oral 720 ml IV Total 300 ml 250 ml 262.5 ml # Voids 3 3 # Bowel Movements 0 Result Diagram: 10/15/17201610/16/17 0200 Imaging Last Impressions Hand MRI 10/13/17 0000 Signed Impressions: Service Date/Time: Friday, October 13, 2017 18:29 - CONCLUSION: Extensive soft tissue swelling and no definite abscess. Gopi Avila MD Finger X-Ray 10/13/17 0000 Signed Impressions: Service Date/Time: Friday, October 13, 2017 17:41 - CONCLUSION: Soft tissue swelling and no definite fracture for technique, radiopaque densities as above. Gopi Avila MD Objective Remarks AAOx3 Clear lungs BL S1S2 RRR Right second finger dressed with dressing clean dry and intact. Peripheral perfusion of the other fingers intact. abdomen soft, NT, ND no edema in lower extremities Procedures Incision and drainage, abscess, right index finger including debridement of extensor tendon sheath, right index finger. Medications and IVs Current Medications Medications (Trade) Dose Ordered Sig/Deyvi Route Start Time Stop Time Status Last Admin (Morphine Inj) 2 mg Q4H PRN IV PUSH 10/13/17 18:30 10/14/17 20:13 (Zofran Inj) 4 mg Q8HR PRN IV PUSH 10/13/17 18:30 (Tylenol) 650 mg Q4H PRN PO 10/13/17 18:30 (Percocet 5-325 Mg) 1 tab Q4H PRN PO 10/13/17 22:45 10/16/17 10:15 Miscellaneous Information SPECIFIC LAB TO BE DRAWN:VANCOMYCIN TROUGH DATE TO... ONCE ONCE .XX 10/18/17 01:45 10/18/17 01:46 (Zyvox) 600 mg Q12HR PO 10/16/17 13:15 UNV A/P Problem List: (1) Infection of right hand ICD Code: L08.9 - Local infection of the skin and subcutaneous tissue, unspecified Status: Acute Plan: The patient was admitted to the medical floor. Will start an IV broad- spectrum antibiotic therapy with IV vancomycin and IV Zosyn. Cultures were obtained from the wound which grew MRSA. The patient underwent incision and drainage of the abscess. ID consult was placed. IV Zosyn was later discontinued by ID. Discussed the case with Dr. Hodges infectious disease. She recommends 21 days of Zyvox. The patient also needs follow-up with ID - there is a mandatory referral been placed by Dr. Hodges. I will place a mandatory referral for the patient to follow-up with Dr. Cabrera from hand surgery. Control was provided with Percocet and morphine sulfate. Assessment and Plan DVT prophylaxis: SCDs. Discharge Planning Discharge pending and surgical clearance, ID consultation for outpatient antibiotic therapy recommendations. Nadir Camacho MD Oct 16, 2017 13:17
--- NOTE | 2017-10-16 13:34 | HHI.DS ---
Discharge Summary Admission Date Oct 13, 2017 at 18:19 Discharge Date: Oct 16, 2017 Admitting Diagnosis right second finger infection (1) Infection of right hand ICD Code: L08.9 - Local infection of the skin and subcutaneous tissue, unspecified Diagnosis: Principal Status: Acute (2) MRSA (methicillin resistant Staphylococcus aureus) infection ICD Code: A49.02 - Methicillin resistant Staphylococcus aureus infection, unspecified site Diagnosis: Principal Status: Acute (3) Cellulitis of right hand ICD Code: L03.113 - Cellulitis of right upper limb Diagnosis: Principal Status: Acute (4) Tenosynovitis of finger ICD Code: M65.9 - Synovitis and tenosynovitis, unspecified Diagnosis: Principal Status: Acute Procedures Incision and drainage, abscess, right index finger including debridement of extensor tendon sheath, right index finger. Brief History - From Admission patient is a 27 y/o male with no significant past medical history presents for evaluation of right index finger pain. He reports that 1 week ago he had his finger in the trigger of a caulk gun when the trigger somehow collapsed, crushing his right index finger. Since then he has had increasing pain and swelling in that right index finger now the pain is spreading up to the dorsum of the right wrist. he says that the pain is to the extent that he can not bend his finger. he denies any fever or chills. CBC/BMP: 10/15/17201610/16/17 0200 Significant Findings Laboratory Tests Test 10/13/17 17:40 10/15/17 20:17 10/16/17 02:00 Red Blood Count 4.26 MIL/MM3 (4.50-5.90) 4.25 MIL/MM3 (4.50-5.90) Estimat Glomerular Filtration Rate 73 ML/MIN (>89) Lymphocytes (%) (Auto) 49.5 % (9.0-44.0) Albumin 3.2 GM/DL (3.4-5.0) Aspartate Amino Transf (AST/SGOT) 42 U/L (15-37) C-Reactive Protein 0.76 MG/DL (0.00-0.30) Imaging Last Impressions Hand MRI 10/13/17 0000 Signed Impressions: Service Date/Time: Friday, October 13, 2017 18:29 - CONCLUSION: Extensive soft tissue swelling and no definite abscess. Gopi Avila MD Finger X-Ray 10/13/17 0000 Signed Impressions: Service Date/Time: Friday, October 13, 2017 17:41 - CONCLUSION: Soft tissue swelling and no definite fracture for technique, radiopaque densities as above. Gopi Avila MD PE at Discharge AAOx3 Clear lungs BL S1S2 RRR Right second finger dressed with dressing clean dry and intact. Peripheral perfusion of the other fingers intact. abdomen soft, NT, ND no edema in lower extremities Pt update on day of discharge Patient is afebrile, paion controlled. Hospital Course The patient was admitted to the medical floor. Will start an IV broad- spectrum antibiotic therapy with IV vancomycin and IV Zosyn. Cultures were obtained from the wound which grew MRSA. The patient underwent incision and drainage of the abscess. ID consult was placed. IV Zosyn was later discontinued by ID. Discussed the case with Dr. Hodges infectious disease. She recommends 21 days of Zyvox. The patient also needs follow-up with ID - there is a mandatory referral been placed by Dr. Hodges. I will place a mandatory referral for the patient to follow-up with Dr. Cabrera from hand surgery. Control was provided with Percocet and morphine sulfate. Pt Condition on Discharge: Stable Discharge Disposition: Discharge Home Discharge Time: <= 30 minutes Discharge Instructions DIET: Follow Instructions for: As Tolerated, No Restrictions Activities you can perform: Regular-No Restrictions Follow up Referrals: Appointment for Follow Up @ [facility] with Debbie Pina Appointment for Follow Up - 2-3 Days with Pauline Cabrera MD New Medications: Linezolid (Zyvox) 600 Mg Tab 600 MG PO Q12H for Infection for 21 Days, #42 TAB 0 Refills Oxycodone HCl/Acetaminophen (Oxycodone-Acetaminophen 5-325) 5 Mg-325 Mg Tablet 1 TAB PO Q4H PRN for pain 1-10, #20 TAB Nadir Camacho MD Oct 16, 2017 13:34
[2017-10-16] MEDS ORDERED: OXYC1TAB63 PO (13:36)
[2017-10-16] MEDS ORDERED: VANCOMYCIN INJ 1,750 MG in SODIUM CHLORID 0.9% 500 ML INJ 500 ML IV SCH (14:00)
[2017-10-18] MEDS ORDERED: PHARMACY ORDERED LAB ONE (01:45)
== END 2017-10-16 16:05 | disposition home or self-care (01) | DRG 513 ==
LOC: NEPC 17:12 → NEDA 18:19 → N04A 19:49
PROVIDERS: ADMIT Hospitalist; ATTEND Hospitalist
PROC: 0L970ZZ Drainage of Right Hand Tendon, Open Approach (ICD-10-PCS; principal; 2017-10-13 20:44)
DX: M65.041 Abscess of tendon sheath, right hand (principal); L02.511 Cutaneous abscess of right hand; M65.9 Synovitis and tenosynovitis, unspecified; L03.011 Cellulitis of right finger; B95.62 Methicillin resistant Staphylococcus aureus infection as the cause of diseases classified elsewhere
CPT/HCPCS: 73140; 73218; 80048; 80053; 80202; 82565; 85025; 85610; 85730; 86140; 86403; 87015; 87070; 87102; 87116; 87147; 87186; 87205; 87206; 90471; 90714; 96374; J0131; J1100; J1580; J1885; J2250; J2270; J2405; J2543; J3010; J3370; J7030; J7050; J7120

== ENCOUNTER 2017-10-24 14:23 | Emergency (ER) | payer MEDICAID ==
[~2017-10-24] VITALS: Ht 170.2 cm; Wt 80.0 kg
[~2017-10-24 14:23] MED LIST changes: -DEXAMETHASONE SOD PHOS 4 MG/ML VIAL IV ONE; -KETOROLAC TROMETHAMINE 30 MG/ML (IVP) VIAL IV PUSH ONE; -LACTATED RINGER'S 1000 ML INJ 1,000 ML IV ONE; -LIDOCAINE HCL 1% PF 5 ML SYRINGE OTHER ONE; -ONDANSETRON HCL 4 MG/2 ML VIAL IV PUSH ONE; +OXYC1TAB63 PO; -PROPOFOL 200 MG/20 ML AMP IV ONE; +ZYVO600T PO
[2017-10-24 14:25] VITALS: BP 149/78; PULSE 60; RESP 14; TEMP 98; O2SAT 99
--- NOTE | 2017-10-24 14:42 | PD ---
HPI Chief Complaint: Wound/Suture/Staple Re-Check Time Seen by Provider: 14:36 Travel History International Travel<30 days: No Contact w/Intl Traveler<30days: No Traveled to known affect area: No History of Present Illness HPI 27-year-old male presents for wound recheck. The patient was admitted on October 12 with right index finger infection, cellulitis, tenosynovitis. The patient underwent operative incision and drainage by hand surgeon Dr. Cabrera. He was discharged on October 16 and according to the discharge summary he was supposed to follow-up with Dr. Cabrera as well as infectious disease Dr. Abel and mandatory outpatient referrals were placed. The patient reports that he didn't understand the discharge instructions and so he presented here for recheck. He is currently taking Zyvox as prescribed. He reports some improvement in the pain and swelling in the finger. No fevers or chills. No other complaints at this time. PFSH Past Medical History Anxiety: Yes Cancer: No Cardiovascular Problems: No Endocrine: No Genitourinary: No Immune Disorder: No Musculoskeletal: No Neurologic: No Psychiatric: Yes Reproductive: No Respiratory: No Social History Alcohol Use: Yes Tobacco Use: No Substance Use: Yes (marijuana) Allergies-Medications (Allergen,Severity, Reaction): Coded Allergies: No Known Allergies (Unverified , 10/13/17) Reported Meds & Prescriptions Reported Meds & Active Scripts Active Oxycodone-Acetaminophen 5-325 (Oxycodone HCl/Acetaminophen) 5 Mg-325 Mg Tablet 1 Tab PO Q4H PRN Zyvox (Linezolid) 600 Mg Tab 600 Mg PO Q12H 21 Days Review of Systems General / Constitutional: No: Fever, Chills Musculoskeletal: Positive: Limited ROM, Pain Physical Exam Narrative GENERAL: Well-nourished male in no acute distress SKIN: Warm and dry. CARDIOVASCULAR: Regular rate and rhythm. No murmur appreciated. RESPIRATORY: No accessory muscle use. Clear to auscultation. Breath sounds equal bilaterally. Extremities: Examination of the right hand reveals some mild residual soft tissue swelling the dorsum of the right index finger. Incision wound noted on the dorsum of the right index finger. There is still slight range of motion limitation in the finger. Distal sensation is intact. Data Data Last Documented VS Vital Signs Date Time Temp Pulse Resp B/P (MAP) Pulse Ox O2 Delivery O2 Flow Rate FiO2 2/14/18 14:25 98.0 60 14 149/78 (101) 99 Orders Orders Mandatory Outpatient Referral (10/24/17 14:50) Mandatory Outpatient Referral (10/24/17 14:50) Ed Discharge Order (10/24/17 14:50) Wound Care (10/24/17 14:50) MDM Medical Decision Making Medical Screen Exam Complete: Yes Emergency Medical Condition: Yes Medical Record Reviewed: Yes Differential Diagnosis Wound recheck, cellulitis, abscess, tenosynovitis Narrative Course I discussed the issue with the case repairer in regards to the patient's previously placed into outpatient referrals for follow-up with Dr. Abel and Dr. Cabrera. Discussed with Fidelia the case repairer who will look into the issue. The mandatory outpatient referrals have been reordered and the patient is going to be discharged. He was given information on patient assistance program and local wound care has been provided. Diagnosis Primary Impression: MRSA (methicillin resistant Staphylococcus aureus) infection Additional Impression: Tenosynovitis of finger Referrals: Pauline Cabrera MD, Reba K MD Additional Instructions: Follow-up with Dr. Cabrera and Dr. Abel as discussed. At some point our case repairer will be calling you to help facilitate follow-up. Return for any emergent medical conditions. Med/Other Pt SpecificInfo: Wound Care Disposition: 01 DISCHARGE HOME Condition: Stable Toro Chamberlain Oct 24, 2017 14:42
== END 2017-10-24 15:36 | disposition home or self-care (01) ==
LOC: NEPK 14:23
DX: M65.9 Synovitis and tenosynovitis, unspecified (principal); A49.02 Methicillin resistant Staphylococcus aureus infection, unspecified site; F41.9 Anxiety disorder, unspecified
CPT/HCPCS: 99281